=== PATIENT | male | born 1965 | race Caucasian/White ===

== ENCOUNTER → 2019-08-15 12:36 | Outpatient (BNVA) | payer MEDICARE, MEDICAID, SELFPAY | PROVIDERS: Family Provider Family Medicine; PCP Family Medicine; Visit Provider Nurse Practitioner | DX: F70 Mild intellectual disabilities (principal); F84.0 Autistic disorder; F41.1 Generalized anxiety disorder | CPT/HCPCS: 99213 ==

== ENCOUNTER 2019-09-18 07:18 | Outpatient (CLI) | payer MEDICARE, MEDICAID, SELFPAY ==
[2019-09-18 07:26] VITALS: BMI 20.5
--- NOTE | 2019-09-18 07:26 | ECG_ITS ---
NAME OF STUDY: EXERCISE SESTAMIBI STRESS TEST INDICATION: Chest Pain, Exertional PROCEDURE: The baseline electrocardiogram showed normal sinus rhythm with some nonspecific T wave changes in the high lateral leads. At the baseline, the patient's blood pressure was 133/78 mm Hg with a heart rate of 78/min. The patient exercised for 4 minutes and 16 seconds on a standard Chris protocol. Patient attained a maximum heart rate of 148 beats per minute(89 % of the maximum predicted heart rate) with a blood pressure at the peak exercise of 134/77 mm Hg. The EKG at the peak exercise revealed prominent T wave changes in the high lateral leads. Patient did not have any chest pain or any significant arrhythmis with the exercise Sestamibi was injected 1 minute prior to the peak exercise During the recovery phase, there were no new changes. Blood pressure at the end of the recovery phase was 154/79 mm Hg with a heart rate of 89 per minute. CONCLUSION: 1. Nonspecific EKG changes treadmill exercise 2. No exercise-induced chest pain or cardiac arrhythmia 3. Impaired exercise tolerance, attained a maximum of 7.0 METs 4. Sestamibi/Sestamibi perfusion results pending; see separate report. Electronically Signed On 09-22-2019 10:55:15 LABORATORY TECHNOLOGY TEACHER by Stephan Gilbert M.D. [email or web address]
--- NOTE | 2019-09-18 07:28 | NMCV_ITS ---
NM sheree perf SPECT r/s* [id number] DeonteTrevor Age: 53 Gender: M : 1965 Exam Date: 09/18/2019 08:21 Ordering Phys: Judy Cheatham MD Technologist: MACIE Trujillo Exam Location: [facility] Indications: EXERTIONAL CHEST PAIN STRESS TEST Please see separate stress test report in [facility] for full findings IMAGE PROTOCOL Rest/Stress 1 Exercise Day Radiopharmaceutical Dose (mCi) Administration Site Administered by Rest: Tc-99m 10.4 IV MACIE Campos Sestamibi Stress:Tc-99m 32.6 IV MACIE Campos Sestamimarine Rest: 18-Sep-2019 60 Discovery 630 Stress: 18-Sep-2019 15 Discovery 630 Radiopharmaceutical was injected at 86 % maximum heart rate. Images obtained in supine and prone position. SPECT RESULTS Technical Quality: Excellent Raw Data Analysis: Normal Image Corrections: No attenuation or motion correction applied Summed Stress Score: 5 Summed Rest Score: 0 Summed Difference Score: 5 PERFUSION FINDINGS Medium-sized area of decreased tracer uptake noted in mid to distal inferior and inferolateral wall on the rest images which improved over stress images suggestive of artifact. FUNCTIONAL RESULTS (calculated via Gated SPECT) Stress Image LV EF (%): 70 Stress EDV (mL):80 TID: 0.73 Stress ESV (mL):24 Rest Image LV EF (%): 70 FUNCTIONAL FINDINGS: There is normal left ventricular systolic function. IMPRESSIONS This study is negative for ischemia. EKG segment will be documented separately. Andie Barajas MD (Electronically Signed) Final Date: 19 September 2019 11:35 S
--- NOTE | 2019-09-18 09:31 | SUR.PREOP ---
Patient reports no pain or discomfort prior to the start of the procedure.
[2019-09-18 09:45] VITALS: BP 159/79; PULSE 89
== END 2019-09-18 07:19 | disposition home or self-care (01) ==
LOC: RAD 07:21
PROVIDERS: Family Provider Family Medicine; PCP Family Medicine; Visit Provider Family Medicine
DX: R07.89 Other chest pain (principal)
CPT/HCPCS: 78452; 93017; A9500

== ENCOUNTER → 2019-10-25 07:41 | Outpatient (BNVA) | payer MEDICARE, MEDICAID, SELFPAY | PROVIDERS: Family Provider Family Medicine; PCP Family Medicine; Visit Provider Nurse Practitioner | DX: F41.1 Generalized anxiety disorder (principal); F84.0 Autistic disorder; F70 Mild intellectual disabilities | CPT/HCPCS: 99213 ==

== ENCOUNTER → 2020-02-16 08:03 | Outpatient (BNVA) | payer MEDICARE, MEDICAID, SELFPAY | PROVIDERS: Family Provider Family Medicine; PCP Family Medicine; Visit Provider Nurse Practitioner | DX: F41.1 Generalized anxiety disorder (principal); F84.0 Autistic disorder; F70 Mild intellectual disabilities | CPT/HCPCS: 99213 ==

== ENCOUNTER → 2020-07-03 07:50 | Outpatient (BNVA) | payer MEDICARE, MEDICAID, SELFPAY | PROVIDERS: Family Provider Family Medicine; PCP Family Medicine; Visit Provider Nurse Practitioner | DX: F41.1 Generalized anxiety disorder (principal); F84.0 Autistic disorder; F70 Mild intellectual disabilities | CPT/HCPCS: 99213 ==

== ENCOUNTER → 2021-01-09 11:48 | Outpatient (BNVA) | payer MEDICARE, MEDICAID, SELFPAY | PROVIDERS: Family Provider Family Medicine; PCP Family Medicine; Visit Provider Nurse Practitioner | DX: F41.1 Generalized anxiety disorder (principal); F84.0 Autistic disorder; F70 Mild intellectual disabilities | CPT/HCPCS: 99214 ==

== ENCOUNTER → 2021-03-25 10:42 | Outpatient (BNVA) | payer MEDICARE, MEDICAID, SELFPAY | PROVIDERS: PCP Family Medicine; Visit Provider Nurse Practitioner Family | DX: Z20.822 Contact with and (suspected) exposure to COVID-19 (principal); J06.9 Acute upper respiratory infection, unspecified | CPT/HCPCS: 87635 ==

== ENCOUNTER 2021-04-02 09:33 | Outpatient (CLI) | payer MEDICARE, MEDICAID, SELFPAY ==
--- NOTE | 2021-04-02 09:47 | FL_ITS ---
WS: [id number] ESOPHAGRAM WITH FLUOROSCOPY HISTORY: DYSPHAGIA COMPARISON: None available. FLUOROSCOPY TIME: 1.3 minutes. Esophagus and swallowing function: Patient swallowed the barium mixture without difficulty. There is persistent coating of the cervical esophagus with barium. No aspiration evident. Patient was able to swallow the barium tablet without difficulty. Intermittently visualized hiatal hernia. Gastroesophageal reflux: None. Hiatal hernia: Intermittently visualized hiatal hernia. Small hernia. FL/FL barium swallow [id number] IMPRESSION: 1. No esophageal strictures. 2. Significant residual barium coating the cervical esophagus after swallowing . No aspiration identified. 3. Small reducible hiatal hernia.
== END 2021-04-02 09:34 | disposition home or self-care (01) ==
PROVIDERS: PCP Family Medicine; Visit Provider Specialist
DX: R13.10 Dysphagia, unspecified (principal); K44.9 Diaphragmatic hernia without obstruction or gangrene
CPT/HCPCS: 74220

== ENCOUNTER → 2021-04-07 08:57 | Outpatient (BNVA) | payer MEDICARE, MEDICAID, SELFPAY | PROVIDERS: PCP Family Medicine; Visit Provider Nurse Practitioner | DX: F41.1 Generalized anxiety disorder (principal); F70 Mild intellectual disabilities; F84.0 Autistic disorder | CPT/HCPCS: 99214 ==

== ENCOUNTER 2021-04-16 09:43 | Outpatient (CLI) | payer MEDICARE, MEDICAID, SELFPAY ==
--- NOTE | 2021-04-16 09:52 | CT_ITS ---
WS: [id number] CT scan of the neck. Additional two-dimensional coronal and sagittal reconstruction was performed. Clinical Data: DYSPHAGIA Comparison: None. DLP: 1085.[address] scans at [facility] use at least one of these dose optimization techniques: automated e xposure control; mA and/or kV adjustment per patient size (includes targeted exams where dose is matc hed to clinical indication); or iterative reconstruction. Findings: No lymphadenopathy is noted. The salivary glands are unremarkable. There is no prevertebral soft tiss ue swelling. The larynx is symmetric. The thyroid gland shows normal enhancement. The floor of the mo uth and parapharyngeal spaces are normal. The oral cavity is unremarkable. The carotid arteries bifurcate normally. The vertebral arteries show normal flow. 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 No compression fractures are seen. The lung apices show no abnormalities. The portions of the intracranial circulation which are seen demonstrate no abn ormalities. No erosion of the skull or skull base is seen. There is minimal mucoperiosteal thickening in the posterior aspect of the left maxillary sinus. The nasal septum deviates from right to left. CT/CT neck w con* [id number] Impression: Negative CT scan of the neck.
[2021-04-16] MEDS: iohexol 300 mg/mL 100 mL Btl IV (10:19)
== END 2021-04-16 09:44 | disposition home or self-care (01) ==
PROVIDERS: PCP Family Medicine; Visit Provider Specialist
DX: R13.10 Dysphagia, unspecified (principal)
CPT/HCPCS: 70491; Q9967

== ENCOUNTER → 2021-06-02 10:52 | Outpatient (BNVA) | payer MEDICARE, MEDICAID, SELFPAY | PROVIDERS: PCP Family Medicine; Visit Provider Nurse Practitioner | DX: F41.1 Generalized anxiety disorder (principal); F70 Mild intellectual disabilities; F84.0 Autistic disorder | CPT/HCPCS: 99214 ==

== ENCOUNTER → 2021-06-05 11:32 | Outpatient (BNVA) | payer MEDICARE, MEDICAID, SELFPAY | PROVIDERS: PCP Family Medicine; Visit Provider Social Worker | DX: F33.0 Major depressive disorder, recurrent, mild (principal) | CPT/HCPCS: 90791 ==

== ENCOUNTER 2021-07-30 07:14 | Outpatient (CLI) | payer MEDICARE, MEDICAID, SELFPAY ==
--- NOTE | 2021-07-30 07:32 | NM_ITS ---
WS: [id number] NUCLEAR MEDICINE HIDA SCAN WITH GALLBLADDER EJECTION FRACTION HISTORY: paraUmbilical ABDOMINAL PAIN COMPARISON: None available. TECHNIQUE: The patient was intravenously injected with 8.5 mCi of TC99m Mebrofenin. Immediate imaging over the right upper quadrant was followed by 5 minute image and additional images for a total of 60 minutes. Normal uptake of radiotracer throughout the liver. Activity identified in the gallbladder at 10 minutes and moderately distended by 60 minutes. Activity in the proximal small bowel was seen by 15 minutes. Good washout of the radiotracer from the liver by 60 minutes. The patient then drank 8 ounces of Ensure Plus. Ejection fraction at 60 minutes was 77%. Normal GB ej ection fraction is 35-75%. Post fatty meal symptoms: None. NM/NM hepatobiliary w phar* [id number] IMPRESSION: 1. Normal HIDA scan. 2. Normal gallbladder ejection fraction. 3. Gallbladder only moderately well distends with the excreted radionuclide. Ma y be a component of chronic cholecystitis present. No bile duct dilatation.
== END 2021-07-30 07:15 | disposition home or self-care (01) ==
LOC: RAD 07:18
PROVIDERS: PCP Family Medicine; Visit Provider Family Medicine
DX: R10.33 Periumbilical pain (principal)
CPT/HCPCS: 78227; A9537

== ENCOUNTER 2021-08-14 07:54 | Outpatient (CLI) | payer MEDICARE, MEDICAID, SELFPAY ==
[2021-08-14 07:36] VITALS: BP 171/98; PULSE 74; RESP 18; TEMP 36.5; O2SAT 96
[2021-08-14 08:13] VITALS: BMI 33.6
--- NOTE | 2021-08-14 08:59 | PC.NURSE ---
NKDA allergies confirmed. Patient unaware of what medications taken at home. He did state that he takes blood pressure medication, but did not take it this morning.
[2021-08-14 09:06] VITALS: BP 160/95; PULSE 68; RESP 16; TEMP 36.5; O2SAT 93
[2021-08-14 10:02] VITALS: BP 162/93; PULSE 67; RESP 16; TEMP 36.5; O2SAT 93
== END 2021-08-14 07:55 | disposition home or self-care (01) ==
LOC: OPS 08:02
PROVIDERS: PCP Family Medicine; Visit Provider Nurse Practitioner Family
DX: U07.1 COVID-19 (principal)
CPT/HCPCS: 96365

== ENCOUNTER → 2021-09-10 14:25 | Outpatient (BNVA) | payer MEDICARE, MEDICAID, SELFPAY | PROVIDERS: PCP Family Medicine; Visit Provider Nurse Practitioner | DX: F70 Mild intellectual disabilities (principal); F84.0 Autistic disorder; F41.1 Generalized anxiety disorder | CPT/HCPCS: 99214 ==

== ENCOUNTER → 2021-12-10 10:06 | Outpatient (BNVA) | payer MEDICARE, MEDICAID, SELFPAY | PROVIDERS: PCP Family Medicine; Visit Provider Nurse Practitioner | DX: F70 Mild intellectual disabilities (principal); F84.0 Autistic disorder; F41.1 Generalized anxiety disorder | CPT/HCPCS: 99214 ==

== ENCOUNTER → 2022-04-29 08:03 | Outpatient (BNVA) | payer MEDICARE, MEDICAID, SELFPAY | PROVIDERS: PCP Family Medicine; Visit Provider Podiatrist Foot & Ankle Surgery | DX: Q82.8 Other specified congenital malformations of skin (principal) | CPT/HCPCS: 17110 ==

== ENCOUNTER → 2022-07-28 11:29 | Outpatient (BNVA) | payer MEDICARE, MEDICAID, SELFPAY | PROVIDERS: PCP Family Medicine; Visit Provider Podiatrist Foot & Ankle Surgery | DX: Q82.8 Other specified congenital malformations of skin (principal) | CPT/HCPCS: 17110 ==

== ENCOUNTER → 2022-09-08 15:13 | Outpatient (BNVA) | payer MEDICARE, MEDICAID, SELFPAY | PROVIDERS: PCP Family Medicine; Visit Provider Podiatrist Foot & Ankle Surgery | DX: L84 Corns and callosities (principal); Q82.8 Other specified congenital malformations of skin | CPT/HCPCS: 17110 ==

== ENCOUNTER → 2022-11-03 14:15 | Outpatient (BNVA) | payer MEDICARE, MEDICAID, SELFPAY | PROVIDERS: PCP Family Medicine; Visit Provider Podiatrist Foot & Ankle Surgery | DX: Q82.8 Other specified congenital malformations of skin (principal); L84 Corns and callosities | CPT/HCPCS: 17110 ==

== ENCOUNTER → 2022-11-27 10:54 | Outpatient (BNVA) | payer MEDICARE, MEDICAID, SELFPAY | PROVIDERS: PCP Family Medicine; Visit Provider Otolaryngology | DX: H93.13 Tinnitus, bilateral (principal); H61.23 Impacted cerumen, bilateral | CPT/HCPCS: 69210; 99203 ==

== ENCOUNTER 2022-12-28 10:29 | Emergency (ER) | payer MEDICARE, MEDICAID, SELFPAY ==
[2022-12-28 10:30] VITALS: BP 126/102; PULSE 77; RESP 18; TEMP 37.1; O2SAT 93; BMI 34.5
[2022-12-28 10:36] VITALS: BP 126/102; PULSE 77; RESP 18; O2SAT 93
--- NOTE | 2022-12-28 10:36 | ED_ITS ---
HPI - GI Bleed General: Chief complaint: Abdominal Pain Stated complaint: RECTAL BLEEDING Time Seen by Provider: 12/28/22 10:32 Source: patient Mode of arrival: EMS Limitations: no limitations History of Present Illness: Patient is a 57-year-old male who presents to ED today via EMS for evaluation of rectal bleeding. Patient states over the past 2 weeks he has had progressively worsening abdominal pains. He states about an hour prior to arrival he had a bowel movement and following this he noticed bright red blood in the stool and when he wiped. He states he does have a history of hemorrhoids. No fevers. No N/V/D. complaint: blood on toilet paper and gross hematochezia Onset (ago): hour(s) Severity: moderate Relieving factors: bowel movement Exacerbating factors: none Context: hemorrhoids Associated symptoms: Reports abdominal pain; Denies chills, fever(s), headache(s), malaise, nausea, rash or vomiting Treatments Prior to Arrival: none Review of Systems Const: Denies: fever(s), chills, body aches, fatigue or malaise Card: Denies: chest pain Resp: Denies: dyspnea GI: Reports: abdominal pain, rectal pain and hematochezia; Denies: nausea, vomiting, diarrhea or melena : Denies: flank pain, difficulty urinating, dysuria, urinary frequency, urinary urgency or urinary hesitancy Musc: Denies: neck pain, back pain, extremity pain or joint pain Skin/Breast: Denies: rash Neuro: Denies: headache(s), numbness in extremities, weakness in extremities, sensory changes or dizziness [facility] ED PFSH: Medical History Asthma Autistic disorder COVID-19 Dysuria Generalized anxiety disorder GERD (gastroesophageal reflux disease) HLD (hyperlipidemia) HTN (hypertension) Lower urinary tract symptoms (LUTS) Major depressive disorder, recurrent, mild Mild intellectual disabilities Psychiatric care Social History Smoking and tobacco status: never smoked Physical Exam Const: COMMON NORMALS: no acute distress, alert and well nourished GENERAL APPEARANCE: cooperative ORIENTATION/CONSCIOUSNESS: Yes awake, Yes oriented to person, Yes oriented to place and Yes oriented to time OTHER: intellectual disability HENMT: COMMON NORMALS: normocephalic and atraumatic HEAD & SCALP: normocephalic and atraumatic Resp: COMMON NORMALS: normal respiratory effort and clear to auscultation bilaterally AUSCULTATION: clear to auscultation bilaterally Cardio: COMMON NORMALS: regular rate and regular rhythm RATE: regular rate RHYTHM: regular rhythm GI: COMMON NORMALS: Normal to inspection, nondistended, normoactive bowel sounds present, Soft to palpation, No hepatosplenomegaly present and no masses INSPECTION: Yes normal to inspection AUSCULTATION: Yes normoactive bowel sounds PALPATION: Yes Soft to palpation, Yes Tenderness to palpation present (GI) (throughout lower abdomen; left abdomen), No Guarding due to palpation present (GI), No Rigid due to palpation and Yes No hepatosplenomegaly present RECTAL EXAM: Yes hemorrhoids (several external hemorrhoids; none thrombosed) : COMMON NORMALS: Yes no CVA tenderness BLADDER/KIDNEY EXAM: Yes no CVA tenderness Back/Pelvis: COMMON NORMALS: no CVA tenderness Extremity: COMMON NORMALS: normal to inspection GENERAL: Yes normal exam except as noted Neuro: SENSORIUM/ORIENTATION: Yes alert, Yes oriented to person, Yes oriented to place and Yes oriented to time Course Vital Signs: Vital signs: Vital Signs Temperature 98.8 F 12/28/22 10:30 Pulse Rate 71 12/28/22 12:32 Respiratory Rate 18 12/28/22 12:32 Blood Pressure 139/68 12/28/22 12:32 Pulse Oximetry 96 12/28/22 12:32 Oxygen Delivery Me thod Room Air 12/28/22 10:36 MDM - GI Bleed Medical Decision Making Rectal bleeding could be secondary to hemorrhoids seen on exam or colitis seen on CT imaging. He does have associated diffuse lower abdominal pain we will go ahead and treat the colitis with Cipro and Flagyl. We will place him on medications for the hemorrhoids and get him set up with general surgery for evaluation for a possible hemorrhoidectomy if indicated. Return to ED precautions given. Lab Data 12/28/22 11:25 12/28/22 11:25 Laboratory Results WBC 6.1 10^3/uL (4.0-10.0) 12/28/22 11:25 RBC 4.26 10^6/uL (4.1-5.3) 12/28/22 11:25 Hgb 12.5 g/dL (11.7-16.6) 12/28/22 11:25 Hct 38.8 % (42.0-52.0) L 12/28/22 11:25 MCV 91.1 fl (80-94) 12/28/22 11:25 MCH 29.3 pg (28.0-34.0) 12/28/22 11:25 MCHC 32.2 g/dL (30.0-36.0) 12/28/22 11:25 RDW 13.2 % (12.1-15.1) 12/28/22 11:25 Plt Count 88 10^3/cmm (130-400) L 12/28/22 11:25 MPV 10.6 fL (7.4-10.4) H 12/28/22 11:25 Neut % (Auto) 75.1 % 12/28/22 11:25 Lymph % (Auto) 14.4 % 12/28/22 11:25 [place] % (Auto) 8.5 % 12/28/22 11:25 Eos % (Auto) 1.0 % 12/28/22 11:25 Baso % (Auto) 0.5 % 12/28/22 11:25 Neut # (Auto) 4.61 10^3/uL (1.8-7.7) 12/28/22 11:25 Lymph # (Auto) 0.9 10^3/uL (0.8-4.8) 12/28/22 11:25 [place] # (Auto) 0.5 10^3/uL (0.2-0.9) 12/28/22 11:25 Eos # (Auto) 0.1 10^3/uL (0.0-0.8) 12/28/22 11:25 Baso # (Auto) 0.0 10^3/uL (0.0-0.1) 12/28/22 11:25 Nucleated RBC % (auto) 0 % 12/28/22 11:25 Nucleated RBCs # 0.0 /100WBC 12/28/22 11:25 Sodium 137 mmol/L (136-145) 12/28/22 11:25 Potassium 4.0 mmol/L (3.5-5.1) 12/28/22 11:25 Chloride 104 mmol/L (98-107) 12/28/22 11:25 Carbon Dioxide 26 mmol/L (22-29) 12/28/22 11:25 Anion Gap 11.0 (5-19) 12/28/22 11:25 BUN 13 mg/dL (6-20) 12/28/22 11:25 Creatinine 0.9 mg/dL (0.7-1.2) 12/28/22 11:25 GFR Calculation 86.4 mL/min (90-130) L 12/28/22 11:25 Glucose 99 mg/dL (65-115) 12/28/22 11:25 Calculated Osmolality 284 mOsm/kg (285-295) L 12/28/22 11:25 Calcium 8.1 mg/dL (8.5-10.5) L 12/28/22 11:25 Total Bilirubin 0.5 mg/dL (0.15-1.2) 12/28/22 11:25 AST 12 U/L (0-40) 12/28/22 11:25 ALT 10 U/L (0-41) 12/28/22 11:25 Alkaline Phosphatase 77 U/L (40-130) 12/28/22 11:25 Total Protein 5.6 g/dL (6.6-8.7) L 12/28/22 11:25 Albumin 3.4 g/dL (3.5-5.2) L 12/28/22 11:25 Globulin 2.2 g/dL (1.3-4.6) 12/28/22 11:25 Discharge Plan Discharge Patient Disposition: Home Clinical Impression: Colitis, Bleeding hemorrhoids Condition: Stable Prescriptions: New metronidazole 500 mg tablet 500 mg PO BID 7 Days Qty: 14 0RF Cipro 500 mg tablet 500 mg PO Q12H Qty: 14 0RF Anucort-HC 25 mg suppository 25 mg VA DAILY 12 Days Qty: 12 0RF Proctofoam 1 % foam 1 applic VA DAILY Qty: 15 0RF No Action meloxicam 7.5 mg tablet 7.5 mg PO DAILY cetirizine [Zyrtec] 10 mg tablet 10 mg PO DAILY fluconazole 150 mg tablet 150 mg PO DAILY Rx Instructions: x 10 days omeprazole 40 mg capsule,delayed release(DR/EC) 40 mg PO DAILY montelukast 10 mg tablet 10 mg PO DAILY fluticasone propionate 50 mcg/actuation spray,suspension 2 spray INTRANASAL DAILY PRN (Reason: Allergy Symptoms) Spiriva with HandiHaler 18 mcg capsule, w/inhalation device 1 cap INHALATION DAILY Symbicort 160-4.5 mcg/actuation HFA aerosol inhaler 2 puff INHALATION BID Zoloft 100 mg tablet 200 mg PO DAILY Discharge Orders: Discharge ED (Routine); Ordered 12/28/22 Ordered By: Yashira Ervin Referrals: Judy Cheatham MD [Primary Care Provider] - Patient Instructions: Hemorrhoids (DC), Rectal Bleeding (ED), Colitis (ED) Activity Restrictions/Additional Instructions: Take your medications as prescribed. I have placed a referral with case management to help get you set up with a general surgeon follow-up for further evaluation and potential management of your hemorrhoids. Need to return to the emergency department for worsening abdominal pain, rectal pain, worsening rectal bleeding, lightheadedness/dizziness/passing out episodes, or any other concerns you may have. Coding Level of Care Code ED Junior Manufacturing Engineer for Justin Walters
--- NOTE | 2022-12-28 10:48 | CT_ITS ---
WS: [id number] CT ABDOMEN PELVIS TECHNIQUE: Contrast-enhanced CT of the abdomen and pelvis with coronal and sagittal reformatted image s. CLINICAL INFORMATION: abdominal pain, gross hematochezia COMPARISON: 2019 DLP: 1105.[address] scans at [facility] use at least one of these dose optimization techniques: automated e xposure control; mA and/or kV adjustment per patient size (includes targeted exams where dose is matc hed to clinical indication); or iterative reconstruction. FINDINGS:Mild induration involving the LEFT descending colon can be seen with mild infectious or infl ammatory colitis. Mild to moderate transverse colon constipation. Slight bibasilar atelectasis. Subsegmental atelectasis. Mild diffuse fatty infiltration the liver. Mi ld splenomegaly. Mild hepatomegaly. Fluid distended gallbladder is otherwise normal. Normal GE juncti on. Normal portal vein and splenic vein. Normal caliber abdominal aorta. Celiac and SMA are patent. A drenal glands are normal. Normal renal parenchymal enhancement. No hydronephrosis. Tiny RIGHT renal c yst. Prostate calcification. Sigmoid colon is decompressed. Mild fecal retention in the transverse colon. Normal ileocecal valve. Mild diffuse bladder wall thickening can be seen with bladder outlet obstruct ion. Prostate measures 3.6 CM. Moderate spondylitic changes lumbar spine. Tiny fat-containing umbilic al hernia. CT/CT abdomen pelvis w con* [id number] IMPRESSION: 1. Mild induration involving the LEFT descending colon can be seen with mild i nfectious or inflammatory colitis. Mild to moderate transverse colon constipati on. 2. Mild hepatomegaly and splenomegaly. Diffuse fatty infiltration liver. 3. Slight bibasilar atelectasis 4. Mild diffuse bladder wall thickening with mild prostate enlargement. Recomm end correlation for bladder outlet obstruction. Small cystocele. 5. Mild prostate enlargement with calcification. 6. Correlation PSA.
[2022-12-28] MEDS: iohexol 350 mg/mL 500 mL Btl (per mL) IV (11:15)
[2022-12-28 11:40] LABS: Basophils % 0.5 %; Eosinophils # 0.1 10^3/uL (0.0-0.8); Hematocrit 38.8 % (42.0-52.0); Hemoglobin 12.5 g/dL (11.7-16.6); Lymphocytes # 0.9 10^3/uL (0.8-4.8); Lymphocytes % 14.4 %; Mean Corpuscular HGB Conc 32.2 g/dL (30.0-36.0); Mean Corpuscular Hemoglobin 29.3 pg (28.0-34.0); Mean Corpuscular Volume 91.1 fl (80-94); Mean Platelet Volume 10.6 fL (7.4-10.4); Monocytes # 0.5 10^3/uL (0.2-0.9); Monocytes % 8.5 %; Neutrophils # 4.61 10^3/uL (1.8-7.7); Neutrophils % 75.1 %; Nucleated Red Blood Cells % 0 %; Platelet Count 88 10^3/cmm (130-400); Red Blood Count 4.26 10^6/uL (4.1-5.3); Red Cell Distribution Width 13.2 % (12.1-15.1); White Blood Count 6.1 10^3/uL (4.0-10.0)
[2022-12-28 11:51] VITALS: BP 126/72; BP 133/85; BP 143/88; PULSE 65; PULSE 72; PULSE 77
[2022-12-28 11:51] LABS: Alanine Aminotransferase 10 U/L (0-41); Albumin Level 3.4 g/dL (3.5-5.2); Alkaline Phosphatase 77 U/L (40-130); Aspartate Amino Transferase 12 U/L (0-40); Blood Urea Nitrogen 13 mg/dL (6-20); Calcium 8.1 mg/dL (8.5-10.5); Carbon Dioxide 26 mmol/L (22-29); Chloride 104 mmol/L (98-107); Globulin 2.2 g/dL (1.3-4.6); Glomerular Filtration Rate 86.4 mL/min (90-130); Glucose 99 mg/dL (65-115); Osmolality Calculated 284 mOsm/kg (285-295); Sodium 137 mmol/L (136-145); Total Bilirubin 0.5 mg/dL (0.15-1.2); Total Protein 5.6 g/dL (6.6-8.7)
[2022-12-28 12:32] VITALS: BP 139/68; PULSE 71; RESP 18; O2SAT 96
--- NOTE | 2022-12-28 13:56 | DCPLANNER ---
Addendum entered by Briana Cheema 01/01/23 10:52: it consulting manager received the following message from the general surgery clinic regarding follow up appointment: Patient states that his PCP does not want him scheduled right now and wants to see if the medicine that was given works. Original Note: it consulting manager had message to schedule a follow up appointment for patient with general surgery. it consulting manager sent patients information to the front office staff at general surgery. Patients information will be printed and reviewed. Clinic will call patient with appointment information.
== END 2022-12-28 12:32 | disposition home or self-care (01) ==
PROVIDERS: Emergency Provider Physician Assistant; PCP Family Medicine
DX: K52.9 Noninfective gastroenteritis and colitis, unspecified (principal); K64.4 Residual hemorrhoidal skin tags
CPT/HCPCS: 36415; 74177; 80053; 85025; 99285; Q9967

== ENCOUNTER → 2023-02-02 14:02 | Outpatient (BNVA) | payer MEDICARE, MEDICAID, SELFPAY | PROVIDERS: PCP Family Medicine; Visit Provider Podiatrist Foot & Ankle Surgery | DX: Q82.8 Other specified congenital malformations of skin (principal) | CPT/HCPCS: 17110 ==

== ENCOUNTER 2023-04-18 09:51 | Emergency (ER) | payer MEDICARE, MEDICAID, SELFPAY ==
[2023-04-18 10:13] VITALS: BP 147/87; PULSE 80; RESP 15; TEMP 36.7; O2SAT 95
--- NOTE | 2023-04-18 10:38 | W.ED.WOUNDLC ---
HPI - Wound/Laceration General: Chief Complaint: Wound/Laceration Stated Complaint: cut on left arm Time Seen by Provider: 04/18/23 10:21 Source: patient and family Mode of arrival: ambulatory Limitations: no limitations History of Present Illness: 57-year-old male presents to the ER today for left forearm cut. Patient reports an elevator door hit him as it was closing. Patient reports his arm was actively bleeding so he put Band-Aids on it however it is bleeding through. Patient reports last tetanus shot is unknown. He has not done anything else to clean the wound or try to stop the bleeding. Review of Systems General: Reports: 10 or more systems reviewed and unremarkable except in HPI and below PFSH ED PFSH: Medical History Asthma Autistic disorder COVID-19 Dysuria Generalized anxiety disorder GERD (gastroesophageal reflux disease) HLD (hyperlipidemia) HTN (hypertension) Lower urinary tract symptoms (LUTS) Major depressive disorder, recurrent, mild Mild intellectual disabilities Psychiatric care Social History Smoking and tobacco status: never smoked Physical Exam Const: COMMON NORMALS: no acute distress, average body habitus, healthy appearing, alert and well nourished Resp: COMMON NORMALS: normal respiratory effort EFFORT & INSPECTION: Yes able to speak in complete sentences Cardio: COMMON NORMALS: regular rate and regular rhythm RATE: regular rate RHYTHM: regular rhythm Extremity: COMMON NORMALS: full ROM OTHER: see skin exam Neuro: SENSORIUM/ORIENTATION: Yes alert Psych: COMMON NORMALS: cooperative OTHER: pts mental status at baseline Skin: NARRATIVE SKIN EXAM: Patient has a superficial skin tear to the left forearm without active bleeding. This is approximately 4 cm x 2 cm. Course ED course: Patient presents for a left forearm laceration. He reports this occurred when an elevator door closed on his arm. He denies any pain in his arm. Patient reports he did not know how to stop the bleeding so he came to the ER. They are currently Band-Aids in place. Patient also unaware of last tetanus shot. Vital Signs: Vital signs: Vital Signs Temperature 98.0 F 04/18/23 10:13 Pulse Rate 80 04/18/23 10:13 Respiratory Rate 15 04/18/23 10:13 Blood Pressure 147/87 04/18/23 10:13 Pulse Oximetry 95 04/18/23 10:13 Oxygen Delivery Me thod Room Air 04/18/23 10:13 MDM - Wound/Laceration Medical Decision Making Patient has a superficial skin tear to the left forearm. No active bleeding. Triple antibiotic ointment and a nonstick dressing were applied along with a pressure dressing. Discussed wound care with patient. Change dressing once daily and apply DAWIT. Tetanus status was updated today. Follow-up with PCP in 3 to 5 days for wound recheck. Return to the ER with new or worsening symptoms. Patient verbalized understanding and was in agreement with the treatment plan. No radiology studies performed this visit Critical Care Time Critical Care Time: Critical Care Time: No Discharge Plan Discharge Patient Disposition: Home Clinical Impression: Skin tear of left forearm without complication Qualifiers: Encounter type: initial encounter Qualified Code(s): S51.812A - Laceration without foreign body of left forearm, initial encounter Condition: Stable Prescriptions: No Action meloxicam 7.5 mg tablet 7.5 mg PO DAILY cetirizine [Zyrtec] 10 mg tablet 10 mg PO DAILY Zoloft 100 mg tablet 200 mg PO DAILY Qty: 30 2RF fluconazole 150 mg tablet 150 mg PO DAILY Rx Instructions: x 10 days omeprazole 40 mg capsule,delayed release(DR/EC) 40 mg PO DAILY montelukast 10 mg tablet 10 mg PO DAILY fluticasone propionate 50 mcg/actuation spray,suspension 2 spray INTRANASAL DAILY PRN (Reason: Allergy Symptoms) Spiriva with HandiHaler 18 mcg capsule, w/inhalation device 1 cap INHALATION DAILY Symbicort 160-4.5 mcg/actuation HFA aerosol inhaler 2 puff INHALATION BID Cipro 500 mg tablet 500 mg PO Q12H Qty: 14 0RF Proctofoam 1 % foam 1 applic ND DAILY Qty: 15 0RF Discharge Orders: Discharge ED (Routine); Ordered 04/18/23 Ordered By: Ashley Fregoso Referrals: Judy Cheatham MD [Primary Care Provider] - Discharge Diet: Usual diet Discharge Activity: Resume usual activity Patient Instructions: Opioid Safety, Pain Management Activity Restrictions/Additional Instructions: Wound care as discussed. Change dressing once daily and apply triple antibiotic ointment. Keep clean and watch for signs of infection. Follow-up with PCP in 3 to 5 days for wound recheck. Return to the ER with new or worsening symptoms. Coding Level of Care Code ED Director [employer] for Justin Walters
[2023-04-18] MEDS: tetanus-dipt-pertussis 0.5 mL SDV IM (10:43)
[2023-04-18] MEDS: neomycin-poly-bacitracin oint 28 gm 1 APPLIC TOPICAL (10:43)
== END 2023-04-18 11:00 | disposition home or self-care (01) ==
PROVIDERS: Emergency Provider Physician Assistant; PCP Family Medicine
DX: S51.812A Laceration without foreign body of left forearm, initial encounter (principal); F84.0 Autistic disorder; E78.5 Hyperlipidemia, unspecified; I10 Essential (primary) hypertension; W23.0XXA Caught, crushed, jammed, or pinched between moving objects, initial encounter; Z23 Encounter for immunization
CPT/HCPCS: 90471; 90715; 99283

== ENCOUNTER → 2023-05-04 13:59 | Outpatient (BNVA) | payer MEDICARE, MEDICAID, SELFPAY | PROVIDERS: PCP Family Medicine; Visit Provider Podiatrist Foot & Ankle Surgery | DX: Q82.8 Other specified congenital malformations of skin | CPT/HCPCS: 17110 ==

== ENCOUNTER → 2023-07-13 13:18 | Outpatient (BNVA) | payer MEDICARE, MEDICAID, SELFPAY | PROVIDERS: PCP Family Medicine; Visit Provider Podiatrist Foot & Ankle Surgery | DX: Q82.8 Other specified congenital malformations of skin | CPT/HCPCS: 17110 ==

== ENCOUNTER 2023-10-06 20:36 | Emergency (ER) | payer MEDICARE, MEDICAID, SELFPAY ==
[2023-10-06 20:38] VITALS: BP 158/105; PULSE 88; RESP 15; TEMP 36.7; O2SAT 94
--- NOTE | 2023-10-06 21:06 | ED_ITS ---
HPI - GI Bleed 2 General: Chief complaint: GI Bleed Stated complaint: rectal bleeding Time Seen by Provider: 10/06/23 21:06 History of Present Illness: 57-year-old male patient comes in [facility] with bleeding from rectum. Patient has a history of hemorrhoids and tonight he believes he had 1 that broke open. Patient has had this happen before in the past and comes in to be evaluated. Patient reports minimal to no pain. Patient does report some constipation. Patient appears nontoxic. Patient appears in no pain. Review of Systems 2 General: Reports: 10 or more systems reviewed and unremarkable except in HPI and below PFSH ED 2 PFSH: Medical History HTN (hypertension) HLD (hyperlipidemia) Asthma GERD (gastroesophageal reflux disease) Dysuria Major depressive disorder, recurrent, mild COVID-19 Lower urinary tract symptoms (LUTS) Psychiatric care Generalized anxiety disorder Autistic disorder Mild intellectual disabilities Social History Smoking and tobacco/nicotine status: never used tobacco/nicotine Physical Exam 2 Const: COMMON NORMALS: alert HENMT: COMMON NORMALS: normocephalic HEAD & SCALP: normocephalic Neck/C-Spine: COMMON NORMALS: full ROM Resp: COMMON NORMALS: normal respiratory effort and clear to auscultation bilaterally AUSCULTATION: clear to auscultation bilaterally Cardio: COMMON NORMALS: regular rate and regular rhythm RATE: regular rate RHYTHM: regular rhythm GI: COMMON NORMALS: Soft to palpation and non-tender PALPATION: Yes Soft to palpation RECTAL EXAM: Yes heme positive stool and Yes hemorrhoids Back/Pelvis: COMMON NORMALS: thoracic and lumbar spine normal to inspection Extremity: COMMON NORMALS: full ROM Neuro: SENSORIUM/ORIENTATION: Yes alert Skin: COMMON NORMALS: turgor normal GENERAL SKIN EXAM: turgor normal Course 2 Vital Signs: Vital signs: Vital Signs Temperature 98.0 F 10/06/23 20:38 Pulse Rate 88 10/06/23 20:38 Respiratory Rate 15 10/06/23 20:38 Blood Pressure 158/105 10/06/23 20:38 Pulse Oximetry 94 10/06/23 20:38 Oxygen Delivery Me thod Room Air 10/06/23 20:38 MDM - GI Bleed Medical Decision Making 57-year-old male patient comes in today with bleeding from the rectum. On exam patient has a large hemorrhoid that is leaking some blood. No significant bleeding is noted. Tenderness is noted. No significant redness or induration is noted. Abdomen soft nontender. Vital signs are normal except for some mild elevation of blood pressure at 158 systolic. Differential diagnosis includes hemorrhoids, colon polyp, cancer. CBC and CMP were normal. No signs of serious illness or injury. Believe the patient probably has a hemorrhoid that has ruptured tonight. Recommended hydrocortisone cream for discomfort. Recommended avoiding constipation and avoid straining with stools. We will have patient follow-up with surgeon for further evaluation and treatment of hemorrhoids. Patient had a colonoscopy 2 years ago that was unremarkable. Lab Data 10/06/23 21:10/06/23 21: Laboratory Results WBC 8.21 10^3/uL (3.29-11.43) 10/06/23 21: RBC 5.24 10^6/uL (3.85-5.65) 10/06/23 21: Hgb 15.00 g/dL (11.27-16.99) 10/06/23 21: Hct 45.1 % (37-53) 10/06/23 21: MCV 86.1 fl (82-101) 10/06/23 21: MCH 28.6 pg (27-33) 10/06/23 21: MCHC 33.3 g/dL (30-55) 10/06/23 21: RDW 13.0 % (12.1-15.1) 10/06/23 21: Plt Count 152 10^3/cmm (157-399) L 10/06/23 21: MPV 10.0 fL (7.4-10.4) 10/06/23 21: Neut % (Auto) 70.8 % 10/06/23 21: Lymph % (Auto) 16.3 % 10/06/23: [place] % (Auto) 9.4 % 10/06/23 21: Eos % (Auto) 2.4 % 10/06/23 21: Baso % (Auto) 0.6 % 10/06/23: Neut # (Auto) 5.81 10^3/uL (1.8-7.7) 10/06/23 21:13 Lymph # (Auto) 1.3 10^3/uL (0.8-4.8) 10/06/23 21:13 [place] # (Auto) 0.8 10^3/uL (0.2-0.9) 10/06/23 21:13 Eos # (Auto) 0.2 10^3/uL (0.0-0.8) 10/06/23 21:13 Baso # (Auto) 0.1 10^3/uL (0.0-0.1) 10/06/23 21:13 Nucleated RBC % (auto) 0 % 10/06/23 21:13 Nucleated RBCs # 0.0 /100WBC 10/06/23 21:13 Sodium 141 mmol/L (136-145) 10/06/23 21:13 Potassium 3.8 mmol/L (3.5-5.1) 10/06/23 21:13 Chloride 103 mmol/L (98-107) 10/06/23 21:13 Carbon Dioxide 26 mmol/L (22-29) 10/06/23 21:13 Anion Gap 15.8 (5-19) 10/06/23 21:13 BUN 15 mg/dL (6-20) 10/06/23 21:13 Creatinine 1.0 mg/dL (0.7-1.2) 10/06/23 21:13 GFR Calculation 76.5 mL/min (90-130) L 10/06/23 21:13 Glucose 91 mg/dL (65-115) 10/06/23 21:13 Calculated Osmolality 292 mOsm/kg (285-295) 10/06/23 21:13 Calcium 8.9 mg/dL (8.5-10.5) 10/06/23 21:13 Total Bilirubin 0.8 mg/dL (0.15-1.2) 10/06/23 21:13 AST 22 U/L (0-40) 10/06/23 21:13 ALT 25 U/L (0-41) 10/06/23 21:13 Alkaline Phosphatase 111 U/L (40-130) 10/06/23 21:13 Total Protein 7.1 g/dL (6.6-8.7) 10/06/23 21:13 Albumin 4.2 g/dL (3.5-5.2) 10/06/23 21:13 Globulin 2.9 g/dL (1.3-4.6) 10/06/23 21:13 No radiology studies performed this visit Discharge Plan Discharge Patient Disposition: Home Clinical Impression: Hemorrhoids Qualifiers: Hemorrhoid type: unspecified Qualified Code(s): K64.9 - Unspecified hemorrhoids Condition: Stable Prescriptions: New Proctofoam HC 1-1 % foam 1 applic [place] TID PRN (Reason: hemorrhoids) Qty: 10 0RF No Action meloxicam 7.5 mg tablet 7.5 mg PO DAILY cetirizine [Zyrtec] 10 mg tablet 10 mg PO DAILY Zoloft 100 mg tablet 200 mg PO DAILY Qty: 60 2RF fluconazole 150 mg tablet 150 mg PO DAILY Rx Instructions: x 10 days omeprazole 40 mg capsule,delayed release(DR/EC) 40 mg PO DAILY montelukast 10 mg tablet 10 mg PO DAILY fluticasone propionate 50 mcg/actuation spray,suspension 2 spray INTRANASAL DAILY PRN (Reason: Allergy Symptoms) Spiriva with HandiHaler 18 mcg capsule, w/inhalation device 1 cap INHALATION DAILY Symbicort 160-4.5 mcg/actuation HFA aerosol inhaler 2 puff INHALATION BID Proctofoam 1 % foam 1 applic [place] DAILY Qty: 15 0RF Discharge Orders: Discharge ED (Routine); Ordered 10/06/23 Ordered By: Tom Redyd Referrals: Judy Cheatham MD [Primary Care Provider] - Discharge Diet: Usual diet Patient Instructions: Hemorrhoids (ED) Activity Restrictions/Additional Instructions: Avoid sitting for long periods of time on the toilet. Drink plenty of water. Use Proctofoam HC spray to the hemorrhoids to help with swelling and tenderness. Use a stool softener to help keep stools soft and avoid constipation. Follow- up with primary care as needed. manager credit risk will contact you regarding follow- up appointment with surgeon for further evaluation and treatment. Return to ER for worsening symptoms such as lightheadedness, fever greater than 100.4, or new concerns. Coding Level of Care Code ED Manager Ent for Justin Walters
[2023-10-06 21:20] LABS: Basophils # 0.1 10^3/uL (0.0-0.1); Basophils % 0.6 %; Eosinophils # 0.2 10^3/uL (0.0-0.8); Eosinophils % 2.4 %; Hematocrit 45.1 % (37-53); Lymphocytes # 1.3 10^3/uL (0.8-4.8); Lymphocytes % 16.3 %; Mean Corpuscular HGB Conc 33.3 g/dL (30-55); Mean Corpuscular Hemoglobin 28.6 pg (27-33); Mean Corpuscular Volume 86.1 fl (82-101); Monocytes # 0.8 10^3/uL (0.2-0.9); Monocytes % 9.4 %; Neutrophils # 5.81 10^3/uL (1.8-7.7); Neutrophils % 70.8 %; Nucleated Red Blood Cells % 0 %; Platelet Count 152 10^3/cmm (157-399); Red Blood Count 5.24 10^6/uL (3.85-5.65); White Blood Count 8.21 10^3/uL (3.29-11.43)
[2023-10-06] MEDS: hydrocortisone 1% cream 28 gm 1 APPLIC TOPICAL (21:37)
[2023-10-06 21:41] LABS: Alanine Aminotransferase 25 U/L (0-41); Albumin Level 4.2 g/dL (3.5-5.2); Alkaline Phosphatase 111 U/L (40-130); Anion Gap 15.8 (5-19); Aspartate Amino Transferase 22 U/L (0-40); Blood Urea Nitrogen 15 mg/dL (6-20); Calcium 8.9 mg/dL (8.5-10.5); Carbon Dioxide 26 mmol/L (22-29); Chloride 103 mmol/L (98-107); Globulin 2.9 g/dL (1.3-4.6); Glomerular Filtration Rate 76.5 mL/min (90-130); Glucose 91 mg/dL (65-115); Osmolality Calculated 292 mOsm/kg (285-295); Potassium 3.8 mmol/L (3.5-5.1); Sodium 141 mmol/L (136-145); Total Bilirubin 0.8 mg/dL (0.15-1.2); Total Protein 7.1 g/dL (6.6-8.7)
--- NOTE | 2023-10-08 05:33 | DCPLANNER ---
Message sent to General surgery for a follow up evaluation and further treatment of hemorrhoids
== END 2023-10-06 22:16 | disposition home or self-care (01) ==
PROVIDERS: Emergency Provider Nurse Practitioner Family; PCP Family Medicine
DX: K64.9 Unspecified hemorrhoids (principal); I10 Essential (primary) hypertension; E78.5 Hyperlipidemia, unspecified; F84.0 Autistic disorder
CPT/HCPCS: 80053; 85025; 99283

== ENCOUNTER → 2023-10-13 13:27 | Outpatient (BNVA) | payer MEDICARE, MEDICAID, SELFPAY | PROVIDERS: PCP Family Medicine; Visit Provider Podiatrist Foot & Ankle Surgery | DX: Q82.8 Other specified congenital malformations of skin | CPT/HCPCS: 17110 ==

== ENCOUNTER → 2023-10-18 13:46 | Outpatient (BNVA) | payer MEDICARE, MEDICAID, SELFPAY | PROVIDERS: PCP Family Medicine; Visit Provider Surgery | DX: K92.1 Melena (principal); K64.8 Other hemorrhoids; K21.9 Gastro-esophageal reflux disease without esophagitis; K62.89 Other specified diseases of anus and rectum; K59.00 Constipation, unspecified | CPT/HCPCS: 99204 ==

== ENCOUNTER 2023-12-12 17:09 | Emergency (ER) | payer MEDICARE, MEDICAID, SELFPAY ==
[2023-12-12 17:19] VITALS: BP 113/70; PULSE 108; RESP 18; TEMP 36.6; O2SAT 95
--- NOTE | 2023-12-12 17:42 | W.ED.GENADLT ---
HPI - General Adult General: Chief complaint: General Medical Stated complaint: blood in stool Time Seen by Provider: 12/12/23 17:33 History of Present Illness: Patient presents today with bright red blood per rectum since about 1 PM. He has been told in the past that this is likely his hemorrhoids. Could also be diverticular bleeding. He has a colonoscopy scheduled for the of this month in about 10 days. No pain. No weakness. No shortness of breath. He was hoping there was something we can do to stop the bleeding. We discussed that here in the emergency room we initially check to make sure he is not anemic and if he is with him with that but his next best step is to get this colonoscopy done. He is not on any anticoagulation. Review of Systems Narrative: Constitutional symptoms: Negative except as documented in HPI. Skin symptoms: Negative except as documented in HPI. Eye symptoms: Negative except as documented in HPI. ENMT symptoms: Negative except as documented in HPI. Respiratory symptoms: Negative except as documented in HPI. Cardiovascular symptoms: Negative except as documented in HPI. Gastrointestinal symptoms: Negative except as documented in HPI. Genitourinary symptoms: Negative except as documented in HPI. Musculoskeletal symptoms: Negative except as documented in HPI. Neurologic symptoms: Negative except as documented in HPI. Psychiatric symptoms: Negative except as documented in HPI. Endocrine symptoms: Negative except as documented in HPI. [facility] ED PFSH: Medical History (Updated 12/12/23 @ 18:47 by Hillary Ruth MD) HTN (hypertension) HLD (hyperlipidemia) Asthma GERD (gastroesophageal reflux disease) Dysuria Major depressive disorder, recurrent, mild COVID-19 Lower urinary tract symptoms (LUTS) Psychiatric care Generalized anxiety disorder Autistic disorder Mild intellectual disabilities Social History Smoking and tobacco/nicotine status: never used tobacco/nicotine Physical Exam Narrative: EXAM NARRATIVE: General: Alert, no acute distress. Skin: warm and dry Head: Normocephalic Neck: Trachea midline Eye: Extraocular movements are intact. Ears, nose, mouth and throat: Oral mucosa moist Respiratory: Respirations are non-labored Musculoskeletal: Normal ROM Neurological: Alert and oriented, No focal neurological deficit observed. Psychiatric: Cooperative, appropriate mood & affect. Course Vital Signs: Vital signs: Vital Signs Temperature 97.8 F 12/12/23 17:19 Pulse Rate 108 H 12/12/23 17:19 Respiratory Rate 18 12/12/23 17:19 Blood Pressure 113/70 12/12/23 17:19 Pulse Oximetry 95 12/12/23 17:19 Oxygen Delivery Me thod Room Air 12/12/23 17:19 MDM - General Adult Medical Decision Making Medical decision making: Differential diagnosis including but not limited to and based on the above HPI, review of systems and physical exam: Patient has known lower GI bleeds. Today my concern would be is if he has become anemic. So a CBC is being ordered also [facility] to evaluate for upper GI bleeding with a BUN. And for renal failure etc. Orders placed to evaluate differential diagnosis based on the above differential, HPI and physical exam Lab Review: Laboratory results were reviewed and interpreted by myself the emergency room physician. Lab work is unremarkable. White count is 8. BUN and creatinine are 13 and 0.9. His hemoglobin is 15.4. I reviewed the patient's medical record. Assessment and plan: Lower GI bleeding - Discharged home - Discussed plan with patient. Answered any questions. - Evaluation and treatment of this problem were appropriate in the emergency setting. Lab Data 12/12/23 17:58 12/12/23 17:58 Laboratory Results WBC 8.87 10^3/uL (3.29-11.43) 12/12/23 17:58 RBC 5.37 10^6/uL (3.85-5.65) 12/12/23 17:58 Hgb 15.40 g/dL (11.27-16.99) 12/12/23 17:58 Hct 45.5 % (37-53) 12/12/23 17:58 MCV 84.7 fl (82-101) 12/12/23 17:58 MCH 28.7 pg (27-33) 12/12/23 17:58 MCHC 33.8 g/dL (30-55) 12/12/23 17:58 RDW 13.2 % (12.1-15.1) 12/12/23 17:58 Plt Count 163 10^3/cmm (157-399) 12/12/23 17:58 MPV 10.2 fL (7.4-10.4) 12/12/23 17:58 Neut % (Auto) 73.7 % 12/12/23 17:58 Lymph % (Auto) 14.2 % 12/12/23 17:58 [place] % (Auto) 9.5 % 12/12/23 17:58 Eos % (Auto) 1.8 % 12/12/23 17:58 Baso % (Auto) 0.6 % 12/12/23 17:58 Neut # (Auto) 6.54 10^3/uL (1.8-7.7) 12/12/23 17:58 Lymph # (Auto) 1.3 10^3/uL (0.8-4.8) 12/12/23 17:58 [place] # (Auto) 0.8 10^3/uL (0.2-0.9) 12/12/23 17:58 Eos # (Auto) 0.2 10^3/uL (0.0-0.8) 12/12/23 17:58 Baso # (Auto) 0.1 10^3/uL (0.0-0.1) 12/12/23 17:58 Nucleated RBC % (auto) 0 % 12/12/23 17:58 Nucleated RBCs # 0.0 /100WBC 12/12/23 17:58 Sodium 144 mmol/L (136-145) 12/12/23 17:58 Potassium 4.1 mmol/L (3.5-5.1) 12/12/23 17:58 Chloride 106 mmol/L (98-107) 12/12/23 17:58 Carbon Dioxide 28 mmol/L (22-29) 12/12/23 17:58 Anion Gap 14.1 (5-19) 12/12/23 17:58 BUN 13 mg/dL (8-23) 12/12/23 17:58 Creatinine 0.9 mg/dL (0.7-1.2) 12/12/23 17:58 GFR Calculation 86.1 mL/min (90-130) L 12/12/23 17:58 Glucose 137 mg/dL (65-115) H 12/12/23 17:58 Calculated Osmolality 300 mOsm/kg (285-295) H 12/12/23 17:58 Calcium 8.7 mg/dL (8.5-10.5) 12/12/23 17:58 Total Bilirubin 0.7 mg/dL (0.15-1.2) 12/12/23 17:58 AST 17 U/L (0-40) 12/12/23 17:58 ALT 18 U/L (0-41) 12/12/23 17:58 Alkaline Phosphatase 126 U/L (40-130) 12/12/23 17:58 Total Protein 7.1 g/dL (6.6-8.7) 12/12/23 17:58 Albumin 4.1 g/dL (3.5-5.2) 12/12/23 17:58 Globulin 3.0 g/dL (1.3-4.6) 12/12/23 17:58 No radiology studies performed this visit Discharge Plan Discharge Patient Disposition: Home Clinical Impression: Lower GI bleeding Condition: Stable Prescriptions: No Action meloxicam 7.5 mg tablet 7.5 mg PO DAILY hydrochlorothiazide 12.5 mg tablet PO hydroxyzine HCl 25 mg tablet PO amlodipine 5 mg tablet PO atorvastatin 20 mg tablet PO tamsulosin 0.4 mg capsule PO metoprolol succinate 25 mg tablet extended release 24 hr PO Zoloft 100 mg tablet 200 mg PO DAILY Qty: 60 2RF pantoprazole [Protonix] 40 mg tablet,delayed release (DR/EC) 40 mg PO BID 42 Days Qty: 84 1RF hydrocortisone [Anusol-HC] 2.5 % cream with perineal applicator 1 applic [place] QID PRN (Reason: hemorrhoids) 10 Days Qty: 30 0RF fluconazole 150 mg tablet 150 mg PO DAILY Rx Instructions: x 10 days omeprazole 40 mg capsule,delayed release(DR/EC) 40 mg PO DAILY montelukast 10 mg tablet 10 mg PO DAILY fluticasone propionate 50 mcg/actuation spray,suspension 2 spray INTRANASAL DAILY PRN (Reason: Allergy Symptoms) Spiriva with HandiHaler 18 mcg capsule, w/inhalation device 1 cap INHALATION DAILY Symbicort 160-4.5 mcg/actuation HFA aerosol inhaler 2 puff INHALATION BID Proctofoam 1 % foam 1 applic [place] DAILY Qty: 15 0RF Proctofoam HC 1-1 % foam 1 applic [place] TID PRN (Reason: hemorrhoids) Qty: 10 0RF Discharge Orders: Discharge ED (Routine); Ordered 12/12/23 Ordered By: Hillary Ruth Referrals: Judy Cheatham MD [Primary Care Provider] - 4-7 days Discharge Diet: Usual diet Discharge Activity: Increase activity as tolerated Patient Instructions: Rectal Bleeding (ED) Activity Restrictions/Additional Instructions: Thank you for choosing [facility] for your healthcare needs today. Please realize this is an emergency room and that we are providing you with a medical screening exam and this may not be complete and all inclusive of all the testing and or work up that you may need to determine your ailment or severity of your illness. You have been screened and evaluated and felt safe for discharge. Health conditions do change or evolve sometimes and as such it is important that you follow up with your Primary Doctor to be re checked, 3-5 days is a general good time frame for follow up. You are always welcome to return to the ED for re assessment if your symptoms are worsening or you have new concerns Coding Level of Care Code ED Product Tester Fiberglass for Justin Walters
[2023-12-12 18:05] LABS: Basophils # 0.1 10^3/uL (0.0-0.1); Basophils % 0.6 %; Eosinophils # 0.2 10^3/uL (0.0-0.8); Eosinophils % 1.8 %; Hematocrit 45.5 % (37-53); Lymphocytes # 1.3 10^3/uL (0.8-4.8); Lymphocytes % 14.2 %; Mean Corpuscular HGB Conc 33.8 g/dL (30-55); Mean Corpuscular Hemoglobin 28.7 pg (27-33); Mean Corpuscular Volume 84.7 fl (82-101); Mean Platelet Volume 10.2 fL (7.4-10.4); Monocytes # 0.8 10^3/uL (0.2-0.9); Monocytes % 9.5 %; Neutrophils # 6.54 10^3/uL (1.8-7.7); Neutrophils % 73.7 %; Nucleated Red Blood Cells % 0 %; Platelet Count 163 10^3/cmm (157-399); Red Blood Count 5.37 10^6/uL (3.85-5.65); Red Cell Distribution Width 13.2 % (12.1-15.1); White Blood Count 8.87 10^3/uL (3.29-11.43)
[2023-12-12 18:27] LABS: Alanine Aminotransferase 18 U/L (0-41); Albumin Level 4.1 g/dL (3.5-5.2); Alkaline Phosphatase 126 U/L (40-130); Anion Gap 14.1 (5-19); Aspartate Amino Transferase 17 U/L (0-40); Blood Urea Nitrogen 13 mg/dL (8-23); Calcium 8.7 mg/dL (8.5-10.5); Carbon Dioxide 28 mmol/L (22-29); Chloride 106 mmol/L (98-107); Creatinine Clr Calc Pharmacy 103.8894; Glomerular Filtration Rate 86.1 mL/min (90-130); Glucose 137 mg/dL (65-115); Osmolality Calculated 300 mOsm/kg (285-295); Potassium 4.1 mmol/L (3.5-5.1); Sodium 144 mmol/L (136-145); Total Bilirubin 0.7 mg/dL (0.15-1.2); Total Protein 7.1 g/dL (6.6-8.7)
[2023-12-12 19:06] VITALS: BP 113/70; PULSE 108; RESP 18; TEMP 36.6; O2SAT 95
[2023-12-12 19:07] LABS: SARS Covid-2 Antigen negative (Negative)
== END 2023-12-12 19:10 | disposition home or self-care (01) ==
PROVIDERS: Emergency Provider Emergency Medicine; PCP Family Medicine
DX: K92.1 Melena (principal); K92.2 Gastrointestinal hemorrhage, unspecified; I10 Essential (primary) hypertension; E78.5 Hyperlipidemia, unspecified; F84.0 Autistic disorder; Z11.52 Encounter for screening for COVID-19
CPT/HCPCS: 36415; 80053; 85025; 87426; 99283

== ENCOUNTER → 2024-01-04 13:47 | Outpatient (BNVA) | payer MEDICARE, MEDICAID, SELFPAY | PROVIDERS: PCP Family Medicine; Visit Provider Podiatrist Foot & Ankle Surgery | DX: Q82.8 Other specified congenital malformations of skin | CPT/HCPCS: 17110 ==

== ENCOUNTER 2024-02-10 11:08 | Emergency (ER) | payer MEDICARE, MEDICAID, SELFPAY ==
[2024-02-10 11:49] VITALS: BP 118/69; PULSE 79; TEMP 36.8; O2SAT 93; BMI 34.7
[2024-02-10 13:23] LABS: Basophils # 0.1 10^3/uL (0.0-0.1); Basophils % 0.7 %; Eosinophils # 0.1 10^3/uL (0.0-0.8); Hematocrit 44.6 % (37-53); Lymphocytes # 1.4 10^3/uL (0.8-4.8); Lymphocytes % 14.5 %; Mean Corpuscular HGB Conc 33.6 g/dL (30-55); Mean Corpuscular Volume 86.3 fl (82-101); Mean Platelet Volume 10.3 fL (7.4-10.4); Monocytes # 0.8 10^3/uL (0.2-0.9); Monocytes % 8.2 %; Neutrophils # 7.44 10^3/uL (1.8-7.7); Neutrophils % 75.2 %; Nucleated Red Blood Cells % 0 %; Platelet Count 145 10^3/cmm (157-399); Red Blood Count 5.17 10^6/uL (3.85-5.65); Red Cell Distribution Width 13.1 % (12.1-15.1); White Blood Count 9.89 10^3/uL (3.29-11.43)
[2024-02-10 13:45] LABS: Alanine Aminotransferase 17 U/L (0-41); Albumin Level 4.5 g/dL (3.5-5.2); Alkaline Phosphatase 102 U/L (40-130); Anion Gap 11.8 (5-19); Aspartate Amino Transferase 14 U/L (0-40); Blood Urea Nitrogen 16 mg/dL (8-23); Calcium 9.4 mg/dL (8.5-10.5); Carbon Dioxide 31 mmol/L (22-29); Chloride 96 mmol/L (98-107); Creatinine Clr Calc Pharmacy 85.9168; Glomerular Filtration Rate 68.3 mL/min (90-130); Glucose 174 mg/dL (65-115); Osmolality Calculated 285 mOsm/kg (285-295); Potassium 3.8 mmol/L (3.5-5.1); Sodium 135 mmol/L (136-145); Total Bilirubin 0.9 mg/dL (0.15-1.2); Total Protein 7.5 g/dL (6.6-8.7)
--- NOTE | 2024-02-10 14:16 | XRR_ITS ---
PROCEDURE INFORMATION: Exam: XR Left Shoulder Exam date and time: 02/10/2024 2:37 PM Age: 58 years old Clinical indication: Pain; Shoulder; TECHNIQUE: Imaging protocol: Radiologic exam of the left shoulder. Views: 2 or more views. COMPARISON: CR XR chest 2V* [id number] 02/02/2024 3:35 PM FINDINGS: Bones/joints: Glenohumeral and acromioclavicular alignment is normal. No acute fracture. Assessment of glenohumeral joint space is limited without axillary or Grashey views. Soft tissues: Visible soft tissues are unremarkable. XR/XR shoulder LT min 2V* [id number] IMPRESSION: No acute findings.
--- NOTE | 2024-02-10 14:19 | W.ED.EXTPRO ---
HPI - Extremity Problem General: Chief complaint: Extremity Problem,Nontraumatic Stated complaint: left arm injury Time Seen by Provider: 02/10/24 14:07 History of Present Illness: 58-year-old male presents emergency room with left arm injury. He cannot recall exactly what happened he states it began hurting in the region of the shoulder yesterday around 3:00 he denies any trauma or fall. With movement to the shoulder it causes him more pain no pain with movement for the elbow or wrist. No recent blood draws no history of cancer no swelling in the arm. No fever sweats or chills. Associated symptoms: Deny chest pain, fever(s) or rash Review of Systems Const: Denies: fever(s) or chills Card: Denies: chest pain Resp: Denies: dyspnea GI: Denies: abdominal pain : Denies: dysuria, urinary frequency or urinary urgency Musc: Reports: joint pain; Denies: neck pain or back pain Skin/Breast: Denies: rash PFSH ED PFSH: Medical History HTN (hypertension) HLD (hyperlipidemia) Asthma GERD (gastroesophageal reflux disease) Dysuria Major depressive disorder, recurrent, mild COVID-19 Lower urinary tract symptoms (LUTS) Psychiatric care Generalized anxiety disorder Autistic disorder Mild intellectual disabilities Social History Smoking and tobacco/nicotine status: never used tobacco/nicotine Physical Exam Const: GENERAL APPEARANCE: cooperative and comfortable ORIENTATION/CONSCIOUSNESS: Yes awake, Yes oriented to person, Yes oriented to place and Yes oriented to time HENMT: COMMON NORMALS: normocephalic, atraumatic and hearing grossly normal bilaterally HEAD & SCALP: normocephalic and atraumatic Resp: COMMON NORMALS: normal respiratory effort, No retractions, No use of accessory muscles and clear to auscultation bilaterally AUSCULTATION: clear to auscultation bilaterally Cardio: COMMON NORMALS: regular rate, regular rhythm and No murmurs present (Cardio) RATE: regular rate RHYTHM: regular rhythm GI: COMMON NORMALS: Soft to palpation and No hepatosplenomegaly present AUSCULTATION: Yes normoactive bowel sounds PALPATION: Yes Soft to palpation, No Tenderness to palpation present (GI), No Guarding due to palpation present (GI) and Yes No hepatosplenomegaly present Extremity: COMMON NORMALS: capillary refill normal, no clubbing, cyanosis or edema, no calf tenderness and no pedal edema OTHER: Examination of the left shoulder patient has positive impingement sign worsening pain with internal and external rotation and abduction. No pain at the elbow or the wrist with range of motion at either of those joints. Neurovascularly extremity is intact no signs of rash or vesicular changes. Neuro: SENSORIUM/ORIENTATION: Yes oriented to person, Yes oriented to place and Yes oriented to time Skin: COMMON NORMALS: no rashes or lesions noted GENERAL SKIN EXAM: no rashes or lesions noted Course Vital Signs: Vital signs: Vital Signs Temperature 98.3 F 02/10/24 16:43 Pulse Rate 71 02/10/24 16:43 Respiratory Rate 16 02/10/24 16:43 Blood Pressure 120/67 02/10/24 16:43 Pulse Oximetry 94 02/10/24 16:43 Oxygen Delivery Me thod Room Air 02/10/24 11:49 MDM - Extremity (Nontraumatic) Medical Decision Making Left shoulder pain. Placed in sling anti-inflammatories and follow-up with orthopedics. Avoid working above shoulder level. Medical Records I reviewed the patient's medical records. Lab Data I reviewed the patient's lab results. 02/10/24 13:15 02/10/24 13:15 Radiology Impressions Shoulder X-Ray 02/10/24 14:16 IMPRESSION: No acute findings. Laboratory Results WBC 9.89 10^3/uL (3.29-11.43) 02/10/24 13:15 RBC 5.17 10^6/uL (3.85-5.65) 02/10/24 13:15 Hgb 15.00 g/dL (11.27-16.99) 02/10/24 13:15 Hct 44.6 % (37-53) 02/10/24 13:15 MCV 86.3 fl (82-101) 02/10/24 13:15 MCH 29.0 pg (27-33) 02/10/24 13:15 MCHC 33.6 g/dL (30-55) 02/10/24 13:15 RDW 13.1 % (12.1-15.1) 02/10/24 13:15 Plt Count 145 10^3/cmm (157-399) L 02/10/24 13:15 MPV 10.3 fL (7.4-10.4) 02/10/24 13:15 Neut % (Auto) 75.2 % 02/10/24 13:15 Lymph % (Auto) 14.5 % 02/10/24 13:15 [place] % (Auto) 8.2 % 02/10/24 13:15 Eos % (Auto) 1.0 % 02/10/24 13:15 Baso % (Auto) 0.7 % 02/10/24 13:15 Neut # (Auto) 7.44 10^3/uL (1.8-7.7) 02/10/24 13:15 Lymph # (Auto) 1.4 10^3/uL (0.8-4.8) 02/10/24 13:15 [place] # (Auto) 0.8 10^3/uL (0.2-0.9) 02/10/24 13:15 Eos # (Auto) 0.1 10^3/uL (0.0-0.8) 02/10/24 13:15 Baso # (Auto) 0.1 10^3/uL (0.0-0.1) 02/10/24 13:15 Nucleated RBC % (auto) 0 % 02/10/24 13:15 Nucleated RBCs # 0.0 /100WBC 02/10/24 13:15 Sodium 135 mmol/L (136-145) L 02/10/24 13:15 Potassium 3.8 mmol/L (3.5-5.1) 02/10/24 13:15 Chloride 96 mmol/L (98-107) L 02/10/24 13:15 Carbon Dioxide 31 mmol/L (22-29) H 02/10/24 13:15 Anion Gap 11.8 (5-19) 02/10/24 13:15 BUN 16 mg/dL (8-23) 02/10/24 13:15 Creatinine 1.1 mg/dL (0.7-1.2) 02/10/24 13:15 GFR Calculation 68.3 mL/min (90-130) L 02/10/24 13:15 Glucose 174 mg/dL (65-115) H 02/10/24 13:15 Calculated Osmolality 285 mOsm/kg (285-295) 02/10/24 13:15 Calcium 9.4 mg/dL (8.5-10.5) 02/10/24 13:15 Total Bilirubin 0.9 mg/dL (0.15-1.2) 02/10/24 13:15 AST 14 U/L (0-40) 02/10/24 13:15 ALT 17 U/L (0-41) 02/10/24 13:15 Alkaline Phosphatase 102 U/L (40-130) 02/10/24 13:15 Total Protein 7.5 g/dL (6.6-8.7) 02/10/24 13:15 Albumin 4.5 g/dL (3.5-5.2) 02/10/24 13:15 Globulin 3.0 g/dL (1.3-4.6) 02/10/24 13:15 All radiology interpretation(s) finalized by discharge Discharge Plan Discharge Patient Disposition: Home Clinical Impression: Acute shoulder pain Condition: Stable Prescriptions: New diclofenac sodium 75 mg tablet,delayed release (DR/EC) 75 mg PO Q12H PRN (Reason: pain) Qty: 20 0RF No Action hydrochlorothiazide 12.5 mg tablet 12.5 mg PO DAILY hydroxyzine HCl 25 mg tablet 25 mg PO QPM amlodipine 5 mg tablet 5 mg PO DAILY atorvastatin 20 mg tablet 20 mg PO BEDTIME tamsulosin 0.4 mg capsule 0.4 mg PO DAILY metoprolol succinate 25 mg tablet extended release 24 hr 25 mg PO DAILY Zoloft 100 mg tablet 200 mg PO DAILY Qty: 60 2RF hydrocortisone [Anusol-HC] 2.5 % cream with perineal applicator 1 applic [place] QID PRN (Reason: hemorrhoids) 10 Days Qty: 30 0RF omeprazole 40 mg capsule,delayed release(DR/EC) 40 mg PO DAILY montelukast 10 mg tablet 10 mg PO DAILY tiotropium bromide [Spiriva with HandiHaler] 18 mcg capsule, w/inhalation device 1 cap INHALATION DAILY Proctofoam HC 1-1 % foam 1 applic [place] TID PRN (Reason: hemorrhoids) Qty: 10 0RF cyclobenzaprine 10 mg tablet 10 mg PO BID PRN (Reason: BACK PAIN/SPASM) Discharge Orders: Discharge ED (Routine); Ordered 02/10/24 Ordered By: Yovayn Kwan Referrals: Judy Cheatham MD [Primary Care Provider] - Discharge Diet: Usual diet Discharge Activity: Resume usual activity Patient Instructions: Opioid Safety, Pain Management Activity Restrictions/Additional Instructions: Thank you for choosing [facility] for your healthcare needs today. It is very important that you follow up as instructed or that you return to the Emergency Department should you have concerns or if your condition changes or worsens in any way. You are seen today for left shoulder pain. Case management will make arrangements for you to see orthopedics. Use the sling and the anti-inflammatories you can also apply ice as needed. Coding Level of Care Code ED Sales Advisory Manager for Justin Walters
--- NOTE | 2024-02-10 15:11 | ECG_ITS ---
[facility] Test Date: 2024-02-10 Pat Name: Treovr Clemons Department: Room: Gender: Male [employer]: : [id number] Requested By: Yovany Cobos Order Number: [id number] Albertina MD: Stephan Gilbert M.D. Measurements Intervals [place] Rate: 71 P: 29 NE: 170 QRS: -16 QRSD: 128 T: 48 QT: 415 QTc: 451 Interpretive Statements SINUS RHYTHM MODERATE INTRAVENTRICULAR CONDUCTION DELAY [110+ ms QRS DURATION] Compared to ECG 02/02/2017 16:11:35 Intraventricular conduction delay now present Electronically Signed On 02-10-2024 22:23:27 CDT by Stephan Gilbert M.D. [id number]
[2024-02-10] MEDS: dexamethasone 10 mg/mL INJ IM (15:43)
[2024-02-10] MEDS: ketorolac 30 mg/mL INJ IM (15:44)
[2024-02-10 16:43] VITALS: BP 120/67; PULSE 71; RESP 16; TEMP 36.8; O2SAT 94
--- NOTE | 2024-02-11 07:14 | DCPLANNER ---
message sent to ortho for er f/u
== END 2024-02-10 16:44 | disposition home or self-care (01) ==
PROVIDERS: Emergency Provider Family Medicine; PCP Family Medicine
DX: M25.512 Pain in left shoulder (principal); I10 Essential (primary) hypertension; E78.5 Hyperlipidemia, unspecified; F84.0 Autistic disorder
CPT/HCPCS: 36415; 73030; 80053; 85025; 93005; 96372; 99285; J1100; J1885

== ENCOUNTER 2024-03-15 10:42 | Outpatient (RCR) | payer MEDICARE, MEDICAID, SELFPAY | END 2024-03-25 18:00 | disposition home or self-care (01) | LOC: SPT 10:42 | PROVIDERS: Visit Provider Family Medicine | DX: M25.512 Pain in left shoulder (principal) | CPT/HCPCS: 97110; 97161 ==

== ENCOUNTER 2024-03-16 12:55 | Outpatient (CLI) | payer MEDICARE, MEDICAID, SELFPAY ==
--- NOTE | 2024-03-16 | ECG_ITS ---
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 Interpretive Statements NAME OF STUDY: TREADMILL STRESS TEST INDICATION: [ZAYAS, ] EXERCISE DATA: The patient was exercised by Chris protocol. Baseline heart rate was 69 beats per minute. Baseline blood pressure was 124/78 millimeters of mercury. Maximal predicted heart rate was 160 beats per minute. Maximum heart rate achieved was 123, which was 76% of the maximum predicted heart rate. Maximum blood pressure was 133/83 millimeters of mercury. Total exercise time was 4 minutes and 25 seconds. Maximum METs achieved was 7. The reason for ending the test was leg and arm fatigue and could not continue. The patient complained of shortness of breath during the stress test, which then resolved at the end of the test. ELECTROCARDIOGRAM: BASELINE: Showed sinus rhythm, normal axis, no significant ST-T changes at the baseline noted. Interventricular conduction delay seen [] EXERCISE: At the peak exercise level, [] No significant ST-T changes suggestive of ischemia noted. [] RECOVERY: During the recovery period, heart rate dropped appropriately. No significant ST-T changes in the recovery suggestive of ischemia noted. [] CONCLUSION: 1. Exercise capacity is suboptimal 2. Heart rate response was suboptimal 3. Blood pressure response was appropriate. 4. Symptoms not suggestive of ischemia. 5. Stress test is indeterminate to rule out ischemia as patient could not reach target heart rate. Recommmend alternative stress testing with imaging not involving exercise to assess for ischemia. Electronically Signed On 03-18-2024 9:44:47 CDT by Braxton Ramos M.D. [id number]
[2024-03-16 12:57] VITALS: BMI 38.0
[2024-03-16 13:19] VITALS: BP 133/83; PULSE 89
== END 2024-03-16 12:56 | disposition home or self-care (01) ==
LOC: CDL 12:55
PROVIDERS: Visit Provider Family Medicine
DX: R06.09 Other forms of dyspnea (principal); R94.39 Abnormal result of other cardiovascular function study
CPT/HCPCS: 93017

== ENCOUNTER 2024-03-26 06:00 | Outpatient (RCR) | payer MEDICARE, MEDICAID, SELFPAY | END 2024-04-24 23:59 | disposition home or self-care (01) | LOC: SPT 06:00 | PROVIDERS: Visit Provider Family Medicine | DX: M25.512 Pain in left shoulder (principal) | CPT/HCPCS: 97110 ==

== ENCOUNTER 2024-04-25 06:00 | Outpatient (RCR) | payer MEDICARE, MEDICAID, SELFPAY | END 2024-05-12 23:59 | disposition home or self-care (01) | LOC: SPT 06:00 | PROVIDERS: Visit Provider Family Medicine | DX: M25.512 Pain in left shoulder (principal) | CPT/HCPCS: 97110 ==

== ENCOUNTER 2024-08-09 06:02 | Outpatient (CLI) | payer MEDICARE, MEDICAID, SELFPAY ==
[2024-08-09 06:25] VITALS: BMI 34.5
--- NOTE | 2024-08-09 06:25 | ECG_ITS ---
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 The perfusion scan will be documented separately. DATA: Baseline heart rate was 61 beats per minute. Baseline blood pressure was 150/85 millimeters of mercury. Target heart rate was 160. Maximum heart rate achieved was 89. which was 55 % of the predicted target heart rate. Maximum blood pressure was 150/88 millimeters of mercury. The reason for ending the test was completion of the protocol. The patient did not experience any symptoms. ELECTROCARDIOGRAM: BASELINE: Sinus rhythm. Normal axis. Otherwise, no ST-T changes suggestive of ischemia noted. No arrhythmia noted. EXERCISE: After Lexiscan injection, no ST-T changes suggestive of ischemic noted. No arrhythmia noted. CONCLUSION: Please note due to baseline abnormality of the EKG specificity and sensitivity of the EKG portion of LexiScan MIBI stress test will be low 1. EKG not suggestive of ischemia 2. Lexiscan injection unremarkable. 3. Perfusion scan will be documented separately. Electronically Signed On 08-28-2024 22:10:05 CHIEF [employer]RARIAN CIRCULATION DEPARTMENT by DAXA CERVANTES [id number]
--- NOTE | 2024-08-09 06:25 | NMCV_ITS ---
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 Supine position only as patient was unable to lay prone. SPECT RESULTS Technical Quality: Good Raw Data Analysis: Normal Image Corrections: No attenuation or motion correction applied Summed Stress Score: 0 Summed Rest Score: 2 Summed Difference Score: 0 PERFUSION FINDINGS Large area of persistently decreased tracer uptake noted in basal to distal inferior wall which improved significantly on the stress images suggestive for an artifact FUNCTIONAL RESULTS (calculated via Gated SPECT) Stress Image LV EF (%): 63 Stress EDV (mL):90 TID: 0.96 Stress ESV (mL):33 FUNCTIONAL FINDINGS: There is normal left ventricular systolic function. IMPRESSIONS This study is negative for ischemia and low probability for obstructive coronary disease. EKG segment will be documented separately. Andie Barajas MD (Electronically Signed) Final Date: 10 August 2024 00:41 S
[2024-08-09] MEDS: regadenoson 0.4 Mg/5 ml Syringe IVP (07:48)
[2024-08-09 07:57] VITALS: BP 134/74; PULSE 72
== END 2024-08-09 06:03 | disposition home or self-care (01) ==
LOC: CDL 06:04
PROVIDERS: PCP Family Medicine; Visit Provider Family Medicine
DX: R94.30 Abnormal result of cardiovascular function study, unspecified (principal)
CPT/HCPCS: 36415; 78452; 93017; 96374; A9500; J2785

== ENCOUNTER → 2024-08-23 13:50 | Outpatient (BNVA) | payer MEDICARE, MEDICAID, SELFPAY | PROVIDERS: PCP Family Medicine; Visit Provider Podiatrist Foot & Ankle Surgery | DX: M79.672 Pain in left foot (principal); Q82.8 Other specified congenital malformations of skin | CPT/HCPCS: 99213 ==

== ENCOUNTER → 2024-11-28 13:00 | Outpatient (BNVA) | payer MEDICARE, MEDICAID, SELFPAY | PROVIDERS: PCP Family Medicine; Visit Provider Surgery | DX: K62.89 Other specified diseases of anus and rectum (principal) | CPT/HCPCS: 99214 ==